=== PATIENT | female | born 1975 | race African-American/Black ===

== ENCOUNTER 2024-02-06 00:24 | Inpatient (IN) | payer MEDICAID ==
[2024-02-06] VITALS (14 sets, daily range): BP systolic 128–159; BP diastolic 82–94; PULSE 68–89; RESP 14–25; TEMP 97.4–97.8; O2SAT 97
[~2024-02-06] VITALS: Ht 160 cm; Wt 85.7 kg
[~2024-02-06 00:24] MED LIST: ASPI-1406 PO; ATOR40TA70 PO; BUDE0.5A3 NEB; CITA10SO PO; DAPA5TAB PO; FERR325T6 PO; FURO-151 PO; HYDR-4797 PO; ISOS20TA8 PO; METO-385 PO; MONT-46 PO; NITR0.4T49 SL; P20 MT; SACU1TAB PO; SPIR25TA6 PO; TEMA15CA PO
[2024-02-06] MEDS: ALBUTEROL (0.083%) 2.5MG/3ML NEB HHN STA (00:49)
[2024-02-06] MEDS: IPRATROPIUM BROMIDE (0.02%) 0.5MG/2.5ML NEB HHN STA (00:50)
[2024-02-06] MEDS: ALBUTEROL (0.083%) 2.5MG/3ML NEB ONE (00:57)
[2024-02-06 01:02] LABS: BASOPHILS % 1.1 % (0.0-2.0); DIFFERENTIAL COMMENT 0; EOSINOPHILS % 3.2 % (0.0-5.0); HEMATOCRIT. 43.7 % (36.0-48.0); LYMPHOCYTES % 44.7 % (20.0-50.0); MEAN CORPUSCULAR HEMOGLOBIN 25.6 pg (28.0-32.0); MEAN CORPUSCULAR HGB CONC 32.1 g/dL (31.0-37.0); MEAN CORPUSCULAR VOLUME 79.5 fL (81.0-99.0); MEAN PLATELET VOLUME 8.2 fl (7.4-10.4); MONOCYTES % 7.2 % (2.0-8.0); NEUTROPHILS % 43.8 % (40.0-76.0); PLATELET 217 x1000/uL (130-400); RED BLOOD CELL COUNT 5.49 mill/uL (4.2-5.4); RED CELL DISTRIBUTION WIDTH 18.6 % (11.6-14.6); WHITE BLOOD COUNT 9.4 x1000/uL (4.5-11.0)
[2024-02-06 01:12] LABS: PROTHROMBIN TIME 10.7 sec (9.6-11.0)
[2024-02-06 01:19] LABS: ALANINE AMINOTRANSFERASE 16 IU/L (10-49); ALBUMIN 4.5 g/dL (3.2-4.8); ASPARTATE AMINOTRANSFERASE 27 IU/L (<34); BILIRUBIN TOTAL 0.2 mg/dL (0.1-1.0); CALCIUM 8.9 mg/dL (8.7-10.4); CARBON DIOXIDE 23 mEq/L (21-32); CHLORIDE 107 mEq/L (98-107); GLUCOSE 102 mg/dL (70-105); POTASSIUM 4.3 mEq/L (3.5-5.1); PROTEIN TOTAL 7.8 g/dL (6.0-8.3); SODIUM 138 mEq/L (136-145); TROPONIN I HIGH SENSITIVITY 12 ng/L (3.0-34); UREA NITROGEN BLOOD 10 mg/dL (9-23)
[2024-02-06] MEDS: MAGNESIUM 2 G PREMIX 50 ML IV ONE (01:56)
[2024-02-06] MEDS: METHYLPREDNISOLONE SOD SUCC 125MG/2ML (ACT-O-VIAL) IV STA (01:56)
[2024-02-06 03:02] LABS: TROPONIN I HIGH SENSITIVITY 11 ng/L (3.0-34)
[2024-02-06] MEDS ORDERED: METHYLPREDNISOLONE SOD SUCC 40MG/ML (ACT-O-VIAL) IV SCH (07:45)
[2024-02-06] MEDS: BUDESONIDE 0.5MG/2ML NEB HHN SCH (08:45)
[2024-02-06] MEDS: MORPHINE SULFATE 2 MG/ML CPJ (NOT FOR IM USE) IV SCH (08:45)
[2024-02-06] MEDS ORDERED: ACETYLCYSTEINE 100MG/ML 10% VIAL 4ML INH SCH (12:00)
[2024-02-06] MEDS: AMLODIPINE 5MG TABLET PO NR (12:06)
[2024-02-06] MEDS: METHYLPREDNISOLONE SOD SUCC 40MG/ML (ACT-O-VIAL) IV SCH (12:07)
[2024-02-06] MEDS: IPRATROPIUM/ALBUTEROL 0.5-3(2.5)MG/3ML NEB HHN SCH (12:38)
[2024-02-06] MEDS: HYDROCODONE/ACETAMINOPHEN 10/325MG TABLET PO PRN (15:33)
[2024-02-07] VITALS (17 sets, daily range): BP systolic 113–153; BP diastolic 56–103; PULSE 66–91; RESP 17–30; TEMP 97.6–98.1
[2024-02-07] MEDS ORDERED: CLONIDINE 0.1MG TABLET PO PRN (09:00)
[2024-02-07] MEDS ORDERED: MAGNESIUM/ALUMINUM HYDROXIDE/SIMETHICONE 30ML UDC PO PRN (09:00)
[2024-02-07] MEDS ORDERED: ONDANSETRON HCL 4MG/2ML INJ IV PRN (09:00)
[2024-02-07] MEDS: AMLODIPINE 10MG TABLET PO SCH (09:02)
[2024-02-07] MEDS: ENOXAPARIN 40MG/0.4ML SYR SUBCUT SCH (09:52)
[2024-02-07] MEDS: MORPHINE SULFATE 2 MG/ML CPJ (NOT FOR IM USE) IV PRN (11:35)
[2024-02-07] MEDS ORDERED: NALOXONE HCL 0.4MG/ML VIAL IV PRN (11:45)
[2024-02-07 12:07] LABS: HEMATOCRIT 43.3 % (36.0-48.0); HEMOGLOBIN 14.1 g/dL (12.0-16.0); MEAN CORPUSCULAR HEMOGLOBIN 25.7 pg (28.0-32.0); MEAN CORPUSCULAR HGB CONC 32.7 g/dL (31.0-37.0); MEAN CORPUSCULAR VOLUME 78.8 fL (81.0-99.0); PLATELET 192 x1000/uL (130-400); RED BLOOD CELL COUNT 5.49 mill/uL (4.2-5.4); RED CELL DISTRIBUTION WIDTH 18.8 % (11.6-14.6); WHITE BLOOD COUNT 10.7 x1000/uL (4.5-11.0)
[2024-02-07 12:32] LABS: ALANINE AMINOTRANSFERASE 15 IU/L (10-49); ALBUMIN 4.4 g/dL (3.2-4.8); ASPARTATE AMINOTRANSFERASE 18 IU/L (<34); BILIRUBIN TOTAL 0.5 mg/dL (0.1-1.0); CALCIUM 9.5 mg/dL (8.7-10.4); CARBON DIOXIDE 26 mEq/L (21-32); CHLORIDE 103 mEq/L (98-107); CREATININE 0.9 mg/dL (0.6-1.0); GLUCOSE 120 mg/dL (70-105); POTASSIUM 4.7 mEq/L (3.5-5.1); PROTEIN TOTAL 7.7 g/dL (6.0-8.3); SODIUM 138 mEq/L (136-145); UREA NITROGEN BLOOD 12 mg/dL (9-23)
[2024-02-07] MEDS: NITROGLYCERIN 0.4MG TABLET SL SL PRN (20:57)
[2024-02-07] MEDS: HYDROCODONE/ACETAMINOPHEN 10/325MG TABLET PO PRN (22:00)
[2024-02-08] VITALS (15 sets, daily range): BP systolic 95–153; BP diastolic 57–88; PULSE 73–101; RESP 15–24; TEMP 97.9–98.6
[2024-02-08] MEDS: ACETYLCYSTEINE 200MG/ML 20% VIAL 4ML INH SCH (03:50)
[2024-02-08 06:57] LABS: HEMATOCRIT. 42.3 % (36.0-48.0); HEMOGLOBIN. 13.6 g/dL (12.0-16.0); MEAN CORPUSCULAR HEMOGLOBIN 25.2 pg (28.0-32.0); MEAN CORPUSCULAR HGB CONC 32.2 g/dL (31.0-37.0); MEAN CORPUSCULAR VOLUME 78.3 fL (81.0-99.0); MEAN PLATELET VOLUME 8.8 fl (7.4-10.4); PLATELET 189 x1000/uL (130-400); RED CELL DISTRIBUTION WIDTH 18.6 % (11.6-14.6); WHITE BLOOD COUNT 11.4 x1000/uL (4.5-11.0)
[2024-02-08 07:11] LABS: DIFFERENTIAL COMMENT 1
[2024-02-08 07:16] LABS: ALANINE AMINOTRANSFERASE 14 IU/L (10-49); ALBUMIN 4.1 g/dL (3.2-4.8); ASPARTATE AMINOTRANSFERASE 19 IU/L (<34); BILIRUBIN DIRECT 0.1 mg/dL (<=3.0); BILIRUBIN TOTAL 0.4 mg/dL (0.1-1.0); CALCIUM 9.3 mg/dL (8.7-10.4); CARBON DIOXIDE 27 mEq/L (21-32); CHLORIDE 101 mEq/L (98-107); CHOLESTEROL 150 mg/dL (<200); CREATININE 0.9 mg/dL (0.6-1.0); GLUCOSE 169 mg/dL (70-105); HDL CHOLESTEROL 56 mg/dL (>65); LDL CHOLESTEROL 78 mg/dL (5-100); POTASSIUM 4.6 mEq/L (3.5-5.1); PROTEIN TOTAL 7.3 g/dL (6.0-8.3); SODIUM 134 mEq/L (136-145); T4 FREE 0.94 ng/dL (0.89-1.76); THYROID STIMULATING HORMONE 0.33 uIU/mL (0.55-4.78); TRIGLYCERIDE 64 mg/dL (0-150); UREA NITROGEN BLOOD 17 mg/dL (9-23)
[2024-02-08 07:57] LABS: TROPONIN I HIGH SENSITIVITY 69 ng/L (3.0-34)
[2024-02-08] MEDS: OMEPRAZOLE 20MG CAPSULE EXTENDED RELEASE PO SCH (08:27)
[2024-02-08] MEDS: HYDROCODONE/ACETAMINOPHEN 5/325MG TABLET PO PRN (09:41)
[2024-02-08 16:55] LABS: PLATELET ESTIMATE NORMAL
[2024-02-08 16:56] LABS: MICROCYTOSIS 1+
[2024-02-09] VITALS (18 sets, daily range): BP systolic 105–162; BP diastolic 54–112; PULSE 79–99; RESP 14–27; TEMP 97–98.8; O2SAT 98–99
[2024-02-09] MEDS: KETOROLAC 30MG/ML VIAL IV PRN (00:43)
[2024-02-09 06:03] LABS: ALANINE AMINOTRANSFERASE 12 IU/L (10-49); ALBUMIN 3.6 g/dL (3.2-4.8); ASPARTATE AMINOTRANSFERASE 14 IU/L (<34); BILIRUBIN DIRECT 0.1 mg/dL (<=3.0); BILIRUBIN TOTAL 0.3 mg/dL (0.1-1.0); CARBON DIOXIDE 29 mEq/L (21-32); CHLORIDE 103 mEq/L (98-107); CREATININE 0.9 mg/dL (0.6-1.0); GLUCOSE 161 mg/dL (70-105); PHOSPHORUS 2.3 mg/dL (2.5-4.9); POTASSIUM 4.8 mEq/L (3.5-5.1); PROTEIN TOTAL 6.2 g/dL (6.0-8.3); SODIUM 137 mEq/L (136-145); UREA NITROGEN BLOOD 17 mg/dL (9-23)
[2024-02-09 06:17] LABS: HEMATOCRIT. 41.6 % (36.0-48.0); HEMOGLOBIN. 13.5 g/dL (12.0-16.0); MEAN CORPUSCULAR HEMOGLOBIN 25.4 pg (28.0-32.0); MEAN CORPUSCULAR HGB CONC 32.3 g/dL (31.0-37.0); MEAN CORPUSCULAR VOLUME 78.5 fL (81.0-99.0); MEAN PLATELET VOLUME 8.9 fl (7.4-10.4); PLATELET 194 x1000/uL (130-400); RED CELL DISTRIBUTION WIDTH 18.2 % (11.6-14.6); WHITE BLOOD COUNT 11.4 x1000/uL (4.5-11.0)
[2024-02-09 07:18] LABS: DIFFERENTIAL COMMENT 1
[2024-02-09 19:59] LABS: PLATELET ESTIMATE NORMAL
[2024-02-09 20:00] LABS: ANISOCYTOSIS 1+; MICROCYTOSIS 1+
[2024-02-09] MEDS: ACETAMINOPHEN 325MG TABLET PO PRN (23:34)
[2024-02-10] VITALS (9 sets, daily range): BP systolic 122–170; BP diastolic 80–109; PULSE 74–92; RESP 17–25; TEMP 97.1–98.6; O2SAT 97–98
[2024-02-10] MEDS ORDERED: P20 MT (11:05)
== END 2024-02-10 18:15 | disposition home or self-care (01) | DRG 140 ==
LOC: ER 00:24 → 5EST 04:28 → EDBEDREQ 04:50 → EDBEDREQTM 04:50
PROVIDERS: ADMIT Internal Medicine; ATTEND Internal Medicine
PROC: 5A09357 Assistance with Respiratory Ventilation, Less than 24 Consecutive Hours, Continuous Positive Airway Pressure (ICD-10-PCS; principal; 2024-02-06)
PROC: 5A09357 Assistance with Respiratory Ventilation, Less than 24 Consecutive Hours, Continuous Positive Airway Pressure (ICD-10-PCS; 2024-02-07)
PROC: 5A09357 Assistance with Respiratory Ventilation, Less than 24 Consecutive Hours, Continuous Positive Airway Pressure (ICD-10-PCS; 2024-02-08)
PROC: 5A09357 Assistance with Respiratory Ventilation, Less than 24 Consecutive Hours, Continuous Positive Airway Pressure (ICD-10-PCS; 2024-02-09)
PROC: 5A09357 Assistance with Respiratory Ventilation, Less than 24 Consecutive Hours, Continuous Positive Airway Pressure (ICD-10-PCS; 2024-02-10)
DX: J44.1 Chronic obstructive pulmonary disease with (acute) exacerbation (principal); J96.00 Acute respiratory failure, unspecified whether with hypoxia or hypercapnia; I50.23 Acute on chronic systolic (congestive) heart failure; I27.20 Pulmonary hypertension, unspecified; I71.20 Thoracic aortic aneurysm, without rupture, unspecified; I11.0 Hypertensive heart disease with heart failure; I25.10 Atherosclerotic heart disease of native coronary artery without angina pectoris; E66.9 Obesity, unspecified; Z88.0 Allergy status to penicillin; Z98.61 Coronary angioplasty status; Z68.33 Body mass index [BMI] 33.0-33.9, adult; F41.1 Generalized anxiety disorder; J45.909 Unspecified asthma, uncomplicated
CPT/HCPCS: 36415; 71045; 80048; 80053; 80061; 80076; 83735; 83880; 84100; 84439; 84443; 84484; 85025; 85027; 93005; 93306; 93970; 94640; 94644; 94660; 99291; C1893; J1650; J1885; J2270; J2920; J2930; J3475; J7608; J7626

== ENCOUNTER 2024-07-05 19:23 | Inpatient (IN) | payer MEDICAID ==
[~2024-07-05] VITALS: Ht 160 cm; Wt 88.0 kg
[2024-07-05] MEDS: ASPIRIN 81MG TABLET PO ONE (19:45)
[2024-07-05 20:12] LABS: BASOPHILS % 0.7 % (0.0-2.0); DIFFERENTIAL COMMENT 0; EOSINOPHILS % 1.5 % (0.0-5.0); HEMATOCRIT. 39.3 % (36.0-48.0); HEMOGLOBIN. 12.9 g/dL (12.0-16.0); LYMPHOCYTES % 23.3 % (20.0-50.0); MEAN CORPUSCULAR HEMOGLOBIN 26.2 pg (28.0-32.0); MEAN CORPUSCULAR HGB CONC 32.8 g/dL (31.0-37.0); MEAN CORPUSCULAR VOLUME 79.8 fL (81.0-99.0); MONOCYTES % 10.7 % (2.0-8.0); NEUTROPHILS % 63.8 % (40.0-76.0); PLATELET 192 x1000/uL (130-400); RED BLOOD CELL COUNT 4.92 mill/uL (4.2-5.4); RED CELL DISTRIBUTION WIDTH 14.8 % (11.6-14.6); WHITE BLOOD COUNT 7.5 x1000/uL (4.5-11.0)
[2024-07-05 20:16] LABS: CHLORIDE 105 mEq/L (98-107); POTASSIUM 3.8 mEq/L (3.5-5.1); SODIUM 138 mEq/L (136-145)
[2024-07-05 20:17] LABS: CALCIUM 9.3 mg/dL (8.7-10.4); CARBON DIOXIDE 27 mEq/L (21-32)
[2024-07-05 20:21] LABS: INR 0.9; PARTIAL THROMBOPLASTIN TIME 28.8 sec (23.4-31.0); PROTHROMBIN TIME 10.4 sec (9.6-11.0)
[2024-07-05 20:22] LABS: GLUCOSE 95 mg/dL (70-105); UREA NITROGEN BLOOD 15 mg/dL (9-23)
[2024-07-05 20:24] LABS: TROPONIN I HIGH SENSITIVITY 8 ng/L (3.0-34)
[2024-07-05 20:28] LABS: CREATININE 1.5 mg/dL (0.6-1.0)
[2024-07-05 20:29] LABS: HCG SCREEN NEGATIVE
[2024-07-05 20:44] VITALS: PULSE 83; RESP 20; O2SAT 97
[2024-07-05] MEDS: ALBUTEROL (0.083%) 2.5MG/3ML NEB HHN STA (20:44)
[2024-07-05] MEDS: IPRATROPIUM BROMIDE (0.02%) 0.5MG/2.5ML NEB HHN STA (20:45)
[2024-07-05] MEDS: KETOROLAC 30MG/ML VIAL IV STA (21:05)
[2024-07-05] MEDS: METHYLPREDNISOLONE SOD SUCC 125MG/2ML (ACT-O-VIAL) IV STA (21:06)
[2024-07-05] MEDS: SODIUM CHLORIDE 0.9% 1,000 ML IV ONE (21:06)
[2024-07-05] MEDS ORDERED: ONDANSETRON HCL 4MG/2ML INJ IV PRN (23:15)
[2024-07-05] MEDS: BUDESONIDE 0.5MG/2ML NEB HHN SCH (23:15)
[2024-07-05] MEDS ORDERED: ACETAMINOPHEN 325MG TABLET PO PRN ×2 (23:15)
[2024-07-05] MEDS ORDERED: IPRATROPIUM/ALBUTEROL 0.5-3(2.5)MG/3ML NEB HHN PRN (23:15)
[2024-07-05] MEDS ORDERED: CLONIDINE 0.1MG TABLET PO PRN (23:15)
[2024-07-05 23:53] LABS: THYROID STIMULATING HORMONE 3.75 uIU/mL (0.55-4.78)
[2024-07-06] MEDS: HYDROCODONE/ACETAMINOPHEN 5/325MG TABLET PO PRN (00:41)
[2024-07-06] MEDS: MAGNESIUM 2 G PREMIX 50 ML IV ONE (01:14)
[2024-07-06] MEDS: METHYLPREDNISOLONE SOD SUCC 125MG/2ML (ACT-O-VIAL) IV SCH (01:15)
[2024-07-06] MEDS: IPRATROPIUM/ALBUTEROL 0.5-3(2.5)MG/3ML NEB HHN SCH (03:15)
[2024-07-06] MEDS: LORAZEPAM 0.5MG TABLET PO PRN (05:29)
[2024-07-06 06:39] LABS: CHLORIDE 104 mEq/L (98-107); POTASSIUM 4.2 mEq/L (3.5-5.1); SODIUM 136 mEq/L (136-145)
[2024-07-06 06:41] LABS: CARBON DIOXIDE 21 mEq/L (21-32)
[2024-07-06 06:42] LABS: CALCIUM 9.6 mg/dL (8.7-10.4)
[2024-07-06 06:44] LABS: CREATINE KINASE 37 IU/L (34-145)
[2024-07-06 06:45] LABS: CREATINE KINASE MB FRACTION < 0.5 ng/mL (0.5-3.6); TROPONIN I HIGH SENSITIVITY 9 ng/L (3.0-34)
[2024-07-06 06:47] LABS: CREATININE 1.8 mg/dL (0.6-1.0); GLUCOSE 263 mg/dL (70-105); UREA NITROGEN BLOOD 20 mg/dL (9-23)
[2024-07-06 06:48] LABS: ALANINE AMINOTRANSFERASE 13 IU/L (10-49); ALBUMIN 4.3 g/dL (3.2-4.8); ASPARTATE AMINOTRANSFERASE 18 IU/L (<34)
[2024-07-06 06:49] LABS: BILIRUBIN TOTAL 0.3 mg/dL (0.1-1.0); PHOSPHORUS 3.3 mg/dL (2.5-4.9); PROTEIN TOTAL 7.1 g/dL (6.0-8.3)
[2024-07-06 06:58] LABS: HEMOGLOBIN 12.5 g/dL (12.0-16.0); MEAN CORPUSCULAR HEMOGLOBIN 25.9 pg (28.0-32.0); MEAN CORPUSCULAR VOLUME 80.8 fL (81.0-99.0); PLATELET 192 x1000/uL (130-400); RED BLOOD CELL COUNT 4.82 mill/uL (4.2-5.4); RED CELL DISTRIBUTION WIDTH 15.3 % (11.6-14.6); WHITE BLOOD COUNT 8.1 x1000/uL (4.5-11.0)
[2024-07-06] MEDS ORDERED: METHYLPREDNISOLONE SOD SUCC 125MG/2ML (ACT-O-VIAL) IV SCH (08:31)
[2024-07-06] MEDS ORDERED: TEMAZEPAM 15MG CAPSULE PO SCH (09:00)
[2024-07-06] MEDS: ASPIRIN 81MG EC TABLET PO SCH (09:00)
[2024-07-06] MEDS: FERROUS SULFATE 325MG TABLET PO SCH (09:00)
[2024-07-06] MEDS ORDERED: NITROGLYCERIN 0.4MG TABLET SL SL PRN (09:00)
[2024-07-06] MEDS ORDERED: MEDICATION NOT ON FORMULARY EA (Ferrous Sulfate 325 MG) PO SCH (09:00)
[2024-07-06] MEDS ORDERED: METOPROLOL SUCCINATE 50MG ER TABLET PO SCH (09:00)
[2024-07-06] MEDS ORDERED: FUROSEMIDE 40MG TABLET PO SCH (09:00)
[2024-07-06] MEDS ORDERED: MEDICATION NOT ON FORMULARY EA (Sacubitril/Valsartan (Entresto 24 mg-26 mg Tablet) 1 EAC PO SCH (09:00)
[2024-07-06] MEDS: ENOXAPARIN 40MG/0.4ML SYR SUBCUT SCH (11:07)
[2024-07-06] MEDS: AMLODIPINE 5MG TABLET PO SCH (11:09)
[2024-07-06] MEDS: ISOSORBIDE DINITRATE 20MG TABLET PO SCH (11:29)
[2024-07-06] MEDS: CITALOPRAM HYDROBROMIDE 10MG TABLET PO SCH (11:30)
[2024-07-06] MEDS ORDERED: NALOXONE HCL 0.4MG/ML VIAL IV PRN (14:15)
[2024-07-06] MEDS ORDERED: METO-385 PO (14:19)
[2024-07-06] MEDS ORDERED: DOCU-150 PO (14:19)
[2024-07-06] MEDS ORDERED: ASPI-1160 PO (14:19)
[2024-07-06] MEDS ORDERED: SACU1TAB PO (14:19)
[2024-07-06] MEDS ORDERED: ACET325T52 PO (14:19)
[2024-07-06] MEDS ORDERED: FAMO20TA8 PO (14:19)
[2024-07-06] MEDS ORDERED: NITR0.4T49 SL (14:19)
[2024-07-06] MEDS ORDERED: CITA20TA75 PO (14:19)
[2024-07-06] MEDS ORDERED: FURO40TA5 PO (14:19)
[2024-07-06] MEDS ORDERED: LOSA50TA41 PO (14:20)
[2024-07-06] MEDS ORDERED: ATOR40TA70 PO (14:20)
[2024-07-06 15:25] VITALS: PULSE 85; RESP 20; O2SAT 98
[2024-07-06] MEDS: LORATADINE 10MG TABLET PO SCH (15:31)
[2024-07-06 16:00] VITALS: BP 111/62; PULSE 85; RESP 18; TEMP 36.61404; O2SAT 96
[2024-07-06 16:38] LABS: CREATINE KINASE 48 IU/L (34-145)
[2024-07-06 16:40] LABS: CREATINE KINASE MB FRACTION < 0.5 ng/mL (0.5-3.6); TROPONIN I HIGH SENSITIVITY 7 ng/L (3.0-34)
[2024-07-06 18:16] VITALS: BP 144/74; PULSE 69; RESP 20; TEMP 36.4736
[2024-07-06] MEDS: ATORVASTATIN CALCIUM 40MG TABLET PO SCH (18:54)
[2024-07-06] MEDS: MONTELUKAST SODIUM 10MG TABLET PO SCH (18:55)
[2024-07-06 20:00] VITALS: BP 122/70; PULSE 84; RESP 22; TEMP 36.3918; O2SAT 96
[2024-07-06] MEDS: FAMOTIDINE 20MG TABLET PO SCH (20:35)
[2024-07-06] MEDS: ACETAMINOPHEN WITH CODEINE 300/30MG TABLET PO PRN (20:37)
[2024-07-06] MEDS ORDERED: FAMOTIDINE 20MG TABLET PO SCH (21:00)
[2024-07-06 21:48] VITALS: PULSE 80; RESP 18
[2024-07-06] MEDS: TEMAZEPAM 15MG CAPSULE PO SCH (22:01)
[2024-07-06] MEDS: SACUBITRIL/VALSARTAN 24MG/26MG TABLET PO SCH (22:01)
[2024-07-07] VITALS (11 sets, daily range): BP systolic 100–127; BP diastolic 51–78; PULSE 75–101; RESP 17–22; TEMP 36.3918–37.72524; O2SAT 94–100
[2024-07-07 06:21] LABS: CLARITY URINE CLEAR (CLEAR); COLOR URINE YELLOW (YELLOW); GLUCOSE URINE 3+ (NEGATIVE); KETONES URINE NEGATIVE (NEGATIVE); LEUKOCYTE ESTERASE URINE NEGATIVE (NEGATIVE); NITRITE URINE NEGATIVE (NEGATIVE); OCCULT BLOOD URINE NEGATIVE (NEGATIVE); PH URINE 5.5 (4.5-8.0); PROTEIN URINE TRACE (NEGATIVE); SPECIFIC GRAVITY URINE 1.017 (1.005-1.030); UROBILINOGEN URINE 0.2 E.U./dL (0.2-1.0)
[2024-07-07 06:39] LABS: RBC URINE NONE SEEN /hpf (0-2); WBC URINE NONE SEEN /hpf (0-2)
[2024-07-07 06:40] LABS: BACTERIA URINE TRACE; SQUAMOUS EPITHELIAL CELL URINE FEW /lpf (RARE/1+)
[2024-07-07 06:47] LABS: *AMPHETAMINES SCREEN URINE NEGATIVE (NEGATIVE); *BARBITURATES SCREEN URINE NEGATIVE (NEGATIVE)
[2024-07-07 06:48] LABS: *BENZODIAZEPINES SCREEN URINE NEGATIVE (NEGATIVE); *COCAINE SCREEN URINE NEGATIVE (NEGATIVE); CANNABINOID URINE SCREEN NEGATIVE (NEGATIVE); ECSTASY MDMA SCREEN URINE NEGATIVE (NEGATIVE); METHADONE URINE SCREEN NEGATIVE (NEGATIVE); OPIATES URINE SCREEN PRESUMPTIVE POSITIVE (NEGATIVE); PHENCYCLIDINE URINE SCREEN NEGATIVE (NEGATIVE)
[2024-07-07] MEDS: DOCUSATE SODIUM 100MG CAPSULE PO PRN (10:42)
[2024-07-07] MEDS: EMPAGLIFLOZIN 10MG TABLET PO SCH (10:43)
[2024-07-07] MEDS: METHYLPREDNISOLONE SOD SUCC 40MG/ML (ACT-O-VIAL) IV SCH ×2 (12:51→21:26)
[2024-07-07] MEDS: LACTULOSE 20G/30ML UDC PO NR (18:20)
[2024-07-07] MEDS: GUAIFENESIN 200MG/10ML SUGAR FREE UDC PO PRN (18:22)
[2024-07-07 22:43] LABS: CALCIUM 9.7 mg/dL (8.7-10.4)
[2024-07-07 22:47] LABS: CREATININE 1.3 mg/dL (0.6-1.0)
[2024-07-08] VITALS (9 sets, daily range): BP systolic 97–134; BP diastolic 50–82; PULSE 80–97; RESP 18–20; TEMP 36.22512–36.50292; O2SAT 97–100
[2024-07-08] MEDS ORDERED: P20 MT (15:06)
[2024-07-08] MEDS ORDERED: PRED10TA MT (15:06)
[2024-07-08] MEDS ORDERED: P50 MT (15:06)
[2024-07-20] MEDS ORDERED: T3 PO (17:59)
[2024-07-20] MEDS ORDERED: CETI10TA6 PO (19:32)
[2024-07-20] MEDS ORDERED: ALBU2.5V13 NEB (19:32)
[2024-07-20] MEDS ORDERED: FLUT1DIS6 PO (19:33)
[2024-07-20] MEDS ORDERED: TEMA15CA PO (19:35)
[2024-07-20] MEDS ORDERED: TRAM50TA3 PO (19:35)
== END 2024-07-08 16:47 | disposition home or self-care (01) | DRG 140 ==
LOC: ER 19:23 → 5WST 07-06 01:30 → 8WST 07-06 16:51
PROVIDERS: ADMIT Hospitalist; ATTEND Hospitalist
DX: J44.1 Chronic obstructive pulmonary disease with (acute) exacerbation (principal); J96.01 Acute respiratory failure with hypoxia; N17.0 Acute kidney failure with tubular necrosis; D72.10 Eosinophilia, unspecified; I13.0 Hypertensive heart and chronic kidney disease with heart failure and stage 1 through stage 4 chronic kidney disease, or unspecified chronic kidney disease; J45.901 Unspecified asthma with (acute) exacerbation; I50.22 Chronic systolic (congestive) heart failure; K21.9 Gastro-esophageal reflux disease without esophagitis; I69.354 Hemiplegia and hemiparesis following cerebral infarction affecting left non-dominant side; Z86.74 Personal history of sudden cardiac arrest; E66.9 Obesity, unspecified; F17.210 Nicotine dependence, cigarettes, uncomplicated; G89.4 Chronic pain syndrome; I25.10 Atherosclerotic heart disease of native coronary artery without angina pectoris; N18.9 Chronic kidney disease, unspecified; J32.9 Chronic sinusitis, unspecified; K59.09 Other constipation; M21.372 Foot drop, left foot; M48.061 Spinal stenosis, lumbar region without neurogenic claudication; Z68.34 Body mass index [BMI] 34.0-34.9, adult; Z79.82 Long term (current) use of aspirin; Z79.899 Other long term (current) drug therapy; Z86.79 Personal history of other diseases of the circulatory system; Z88.0 Allergy status to penicillin; Z95.5 Presence of coronary angioplasty implant and graft; Z99.81 Dependence on supplemental oxygen
CPT/HCPCS: 36415; 71045; 74018; 80048; 80053; 80061; 80305; 81003; 82550; 82553; 82962; 83036; 83735; 83880; 84100; 84443; 84484; 84703; 85025; 85027; 93005; 93970; 94640; 97162; 97165; 97535; 99285; J1650; J1885; J2919; J2920; J3475; J7030; J7626

== ENCOUNTER 2025-02-23 20:26 | Inpatient (IN) | payer MEDICAID ==
[~2025-02-23] VITALS: Ht 160 cm; Wt 93.4 kg
[~2025-02-23 20:26] MED LIST changes: +ALBU2.5V13 NEB; +ASPI-1160 PO; -ASPI-1406 PO; +AZIT500T8 MT; -BUDE0.5A3 NEB; -CITA10SO PO; +CITA20TA75 PO; +DOCU-422 PO; +FAMO20TA8 PO; +FLUT1DIS6 PO; -FURO-151 PO; +FURO40TA5 PO; +LOSA50TA41 PO; +P20 PO; +T3 PO; +TRAM50TA3 PO
[2025-02-23] MEDS ORDERED: METHYLPREDNISOLONE 40MG/ML INJ IV ONE (21:00)
[2025-02-23 21:03] VITALS: PULSE 88; RESP 20; O2SAT 99
[2025-02-23] MEDS: IPRATROPIUM/ALBUTEROL 0.5-3(2.5)MG/3ML NEB HHN ONE (21:03)
[2025-02-23 21:16] LABS: BASOPHILS % 0.7 % (0.0-2.0); EOSINOPHILS % 2.7 % (0.0-5.0); HEMATOCRIT. 37.7 % (36.0-48.0); HEMOGLOBIN. 12.3 g/dL (12.0-16.0); LYMPHOCYTES % 23.8 % (20.0-50.0); MEAN CORPUSCULAR HEMOGLOBIN 26.8 pg (28.0-32.0); MEAN CORPUSCULAR HGB CONC 32.5 g/dL (31.0-37.0); MEAN CORPUSCULAR VOLUME 82.5 fL (81.0-99.0); MEAN PLATELET VOLUME 7.8 fl (7.4-10.4); MONOCYTES % 6.1 % (2.0-8.0); NEUTROPHILS % 66.7 % (40.0-76.0); PLATELET 189 x1000/uL (130-400); RED BLOOD CELL COUNT 4.57 mill/uL (4.2-5.4); RED CELL DISTRIBUTION WIDTH 15.8 % (11.6-14.6); WHITE BLOOD COUNT 7.3 x1000/uL (4.5-11.0)
[2025-02-23 21:22] LABS: CHLORIDE 106 mEq/L (98-107); POTASSIUM 3.4 mEq/L (3.5-5.1); SODIUM 142 mEq/L (136-145)
[2025-02-23 21:23] LABS: CALCIUM 9.4 mg/dL (8.7-10.4); CARBON DIOXIDE 27 mEq/L (21-32)
[2025-02-23 21:26] LABS: PROTHROMBIN TIME 10.3 sec (9.6-11.0)
[2025-02-23 21:28] LABS: CREATININE 0.9 mg/dL (0.6-1.0); GLUCOSE 105 mg/dL (70-105); UREA NITROGEN BLOOD 11 mg/dL (9-23)
[2025-02-23 21:30] LABS: TROPONIN I HIGH SENSITIVITY 8 ng/L (3.0-34)
[2025-02-23] MEDS: MORPHINE SULFATE 2 MG/ML INJ (NOT FOR IM USE) IV ONE (22:07)
[2025-02-23] MEDS: METHYLPREDNISOLONE SOD SUCC 125MG/2ML (ACT-O-VIAL) IV NR (22:14)
[2025-02-23] MEDS ORDERED: GUAIFENESIN 200MG/10ML SUGAR FREE UDC PO PRN (22:45)
[2025-02-23] MEDS ORDERED: ONDANSETRON HCL 4MG/2ML INJ IV PRN (22:45)
[2025-02-23] MEDS ORDERED: MAGNESIUM/ALUMINUM HYDROXIDE/SIMETHICONE 30ML UDC PO PRN (22:45)
[2025-02-23] MEDS ORDERED: HYDRALAZINE 20MG/ML VIAL IV PRN (22:45)
[2025-02-23] MEDS ORDERED: ACETAMINOPHEN 325MG TABLET PO PRN (22:45)
[2025-02-23 22:50] VITALS: BP 149/95; PULSE 90; RESP 20; TEMP 36.6
[2025-02-23] MEDS ORDERED: CEFTRIAXONE 1GM/50ML 50 ML IV NR (23:00)
[2025-02-23] MEDS ORDERED: CYCL10TA21 PO (23:40)
[2025-02-23] MEDS ORDERED: GABA-1180 PO (23:40)
[2025-02-23] MEDS ORDERED: FERR-63 PO (23:40)
[2025-02-23] MEDS ORDERED: MONT-39 PO (23:40)
[2025-02-23] MEDS ORDERED: CETI10TA6 PO (23:40)
[2025-02-23] MEDS ORDERED: ALBU10.7 (23:40)
[2025-02-24] VITALS (8 sets, daily range): BP systolic 125–149; BP diastolic 81–95; PULSE 84–106; RESP 16–21; TEMP 35.9–36.7; O2SAT 96–99
[2025-02-24] MEDS: FUROSEMIDE 40MG/4ML VIAL IV SCH (00:23)
[2025-02-24] MEDS: METHYLPREDNISOLONE SOD SUCC 40MG/ML (ACT-O-VIAL) IV SCH (00:24)
[2025-02-24] MEDS: POTASSIUM CHLORIDE 20MEQ TABLET SR PO NR (00:24)
[2025-02-24] MEDS: AZITHROMYCIN 500 MG TABLET PO SCH (00:25)
[2025-02-24] MEDS: TRAMADOL HCL/ACETAMINOPHEN 37.5/325MG TABLET PO PRN (00:26)
[2025-02-24 01:06] LABS: PHOSPHORUS 3.4 mg/dL (2.5-4.9)
[2025-02-24] MEDS: ACETAMINOPHEN 325MG TABLET PO PRN (04:23)
[2025-02-24] MEDS: ISOSORBIDE DINITRATE 20MG TABLET PO SCH (06:29)
[2025-02-24] MEDS: CEFTRIAXONE 1GM/50ML 50 ML IV SCH (06:29)
[2025-02-24 06:53] LABS: CHLORIDE 104 mEq/L (98-107); POTASSIUM 4.2 mEq/L (3.5-5.1); SODIUM 141 mEq/L (136-145)
[2025-02-24 06:54] LABS: CALCIUM 9.4 mg/dL (8.7-10.4); CARBON DIOXIDE 26 mEq/L (21-32)
[2025-02-24 06:58] LABS: TRIGLYCERIDE 45 mg/dL (0-150); UREA NITROGEN BLOOD 16 mg/dL (9-23)
[2025-02-24 06:59] LABS: CREATININE 1.2 mg/dL (0.6-1.0); GLUCOSE 167 mg/dL (70-105); HEMATOCRIT. 39.6 % (36.0-48.0); HEMOGLOBIN. 12.9 g/dL (12.0-16.0); MEAN CORPUSCULAR HEMOGLOBIN 26.9 pg (28.0-32.0); MEAN CORPUSCULAR HGB CONC 32.5 g/dL (31.0-37.0); MEAN CORPUSCULAR VOLUME 82.8 fL (81.0-99.0); MEAN PLATELET VOLUME 8.7 fl (7.4-10.4); PLATELET 206 x1000/uL (130-400); RED BLOOD CELL COUNT 4.78 mill/uL (4.2-5.4)
[2025-02-24 07:00] LABS: LDL CHOLESTEROL 84 mg/dL (5-100)
[2025-02-24 07:01] LABS: ALANINE AMINOTRANSFERASE 19 IU/L (10-49); ASPARTATE AMINOTRANSFERASE 19 IU/L (<34); CHOLESTEROL 156 mg/dL (<200)
[2025-02-24 07:02] LABS: BILIRUBIN DIRECT < 0.1 mg/dL (<=3.0); BILIRUBIN TOTAL 0.3 mg/dL (0.1-1.0); DIFFERENTIAL COMMENT 1; HDL CHOLESTEROL 58 mg/dL (>65); PROTEIN TOTAL 7.2 g/dL (6.0-8.3); T4 FREE 1.05 ng/dL (0.89-1.76); THYROID STIMULATING HORMONE 1.55 uIU/mL (0.55-4.78)
[2025-02-24] MEDS: ENOXAPARIN 30MG/0.3ML SYR SUBCUT SCH (09:54)
[2025-02-24] MEDS: SPIRONOLACTONE 25MG TABLET PO SCH (09:55)
[2025-02-24] MEDS: SACUBITRIL/VALSARTAN 24MG/26MG TABLET PO SCH (09:55)
[2025-02-24] MEDS: ASPIRIN 81MG EC TABLET PO SCH (09:56)
[2025-02-24] MEDS: FAMOTIDINE 20MG TABLET PO SCH (09:58)
[2025-02-24] MEDS: EMPAGLIFLOZIN 10MG TABLET PO SCH (09:58)
[2025-02-24] MEDS: METOPROLOL TARTRATE 50MG TABLET PO SCH (09:58)
[2025-02-24] MEDS: ALBUTEROL (0.083%) 2.5MG/3ML NEB HHN SCH (13:54)
[2025-02-24] MEDS ORDERED: CEFTRIAXONE 1GM/50ML 50 ML IV SCH (20:00)
[2025-02-24] MEDS: ATORVASTATIN CALCIUM 40MG TABLET PO SCH (21:36)
[2025-02-25] VITALS (9 sets, daily range): BP systolic 112–144; BP diastolic 63–94; PULSE 83–94; RESP 12–19; TEMP 36.3–36.7; O2SAT 97–100
[2025-02-25] MEDS: IPRATROPIUM/ALBUTEROL 0.5-3(2.5)MG/3ML NEB HHN PRN (02:08)
[2025-02-25] MEDS ORDERED: AZIT500T8 PO (08:15)
[2025-02-25] MEDS ORDERED: METH4TAB95 MT (08:15)
[2025-02-25 08:30] LABS: POTASSIUM 4.3 mEq/L (3.5-5.1)
[2025-02-25 08:32] LABS: CALCIUM 9.6 mg/dL (8.7-10.4)
[2025-02-25 08:35] LABS: CREATININE 1.2 mg/dL (0.6-1.0)
[2025-02-25 10:45] LABS: PLATELET ESTIMATE NORMAL
[2025-02-25 10:46] LABS: ANISOCYTOSIS 1+
== END 2025-02-25 18:20 | disposition home or self-care (01) | DRG 194 ==
LOC: ER 20:26 → 6WST 21:34
PROVIDERS: ADMIT Hospitalist; ATTEND Hospitalist
DX: I11.0 Hypertensive heart disease with heart failure (principal); J96.00 Acute respiratory failure, unspecified whether with hypoxia or hypercapnia; I50.23 Acute on chronic systolic (congestive) heart failure; E66.9 Obesity, unspecified; E87.6 Hypokalemia; G89.29 Other chronic pain; M48.00 Spinal stenosis, site unspecified; G47.33 Obstructive sleep apnea (adult) (pediatric); J44.1 Chronic obstructive pulmonary disease with (acute) exacerbation; K29.70 Gastritis, unspecified, without bleeding; I25.10 Atherosclerotic heart disease of native coronary artery without angina pectoris; I25.2 Old myocardial infarction; Z68.35 Body mass index [BMI] 35.0-35.9, adult; Z79.82 Long term (current) use of aspirin; Z79.84 Long term (current) use of oral hypoglycemic drugs; Z79.899 Other long term (current) drug therapy; Z86.73 Personal history of transient ischemic attack (TIA), and cerebral infarction without residual deficits; Z87.891 Personal history of nicotine dependence; Z88.0 Allergy status to penicillin; Z95.5 Presence of coronary angioplasty implant and graft
CPT/HCPCS: 36415; 71045; 76705; 80048; 80061; 80076; 83036; 83735; 83880; 84100; 84439; 84443; 84484; 85025; 93005; 93970; 94070; 94640; 94760; 97166; 98960; 99291; J0696; J1650; J1940; J2270; J2919